=== PATIENT | male | born 1940 | race Caucasian/White ===

== ENCOUNTER → 2019-06-05 | Outpatient (CLI) | payer MEDICARE ==
[~2019-06-05] MED LIST: ALUMAG30SU PO; ASPI81CH PO; BISA10S PR; CHOLESTEROL MED; CIPR500 PO; CYAN1000 PO; ENOX80I; FOLI1 PO; HYDACE5 PO; MULVITMIND PO; NICO21TP TOP; Senna Plus Tab1 EACH PO
== END | disposition home or self-care (01) ==
LOC: PLD 14:40 → LAB SHORT 14:40
DX: C02.3 Malignant neoplasm of anterior two-thirds of tongue, part unspecified (principal)
CPT/HCPCS: 88305; 88341; 88342

== ENCOUNTER 2024-02-12 14:35 | Emergency (ER) | payer MEDICARE ==
[~2024-02-12] VITALS: Ht 177.8 cm; Wt 68.0 kg
[2024-02-12 15:11] LABS: BASOPHILS ABSOLUTE AUTO 0.02 K/mm3 (0.00-0.23); BASOPHILS PERCENT AUTO 0 % (0-2); EOSINOPHILS ABSOLUTE AUTO 0.06 K/mm3 (0.00-0.68); EOSINOPHILS PERCENT AUTO 1 % (0-6); Hemoglobin 6.9 g/dL (13.5-17.5); IMMATURE GRAN ABSOLUTE AUTO 0.08 K/mm3 (0.00-0.10); IMMATURE GRAN PERCENT AUTO 1 % (0-1); LYMPHOCYTES ABSOLUTE AUTO 0.49 K/mm3 (0.84-5.20); LYMPHOCYTES PERCENT AUTO 9 % (21-46); MONOCYTES ABSOLUTE AUTO 0.24 K/mm3 (0.16-1.47); MONOCYTES PERCENT AUTO 4 % (4-13); Mean Corpuscular HGB 28.8 pg (26.0-34.0); Mean Corpuscular HGB Conc 31.4 g/dL (31.5-36.5); Mean Corpuscular Volume 92 fL (80-100); Mean Platelet Volume 11.1 fL (9.1-12.4); NEUTROPHILS ABSOLUTE AUTO 4.71 K/mm3 (1.96-9.15); NEUTROPHILS PERCENT AUTO 84 % (41-73); Platelet Count 199 K/mm3 (150-400); RDW Standard Deviation 50.2 fL (35.1-46.3)
[2024-02-12 15:17] LABS: Albumin, Blood 2.5 g/dL (3.4-5.0); Albumin/Globulin Ratio 0.7 (0.8-1.8); Bilirubin, Total 1.3 mg/dL (0.1-1.0); Bun/Creatinine Ratio 12.7 (12.0-20.0); Calcium, Blood 7.9 mg/dL (8.5-10.1); Creatinine, Blood 1.1 mg/dL (0.60-1.20); Globulin, Blood 3.4 g/dL (2.2-4.0); Potassium, Blood 3.6 mmol/L (3.5-5.5); Total Protein, Blood 5.9 g/dL (6.4-8.2)
[2024-02-12 15:33] LABS: IMMATURE RETIC FRACTION 19.4 % (2.3-16.0); RETIC HGB EQUIVALENT 30.2 pg (28.20-36.60); RETICULOCYTE ABSOLUTE 0.0817 M/mm3 (0.0200-0.1100); RETICULOCYTE COUNT PERCENT 3.42 % (0.50-2.50)
[2024-02-12 16:00] LABS: Percent Saturation 12.1 % (20.0-50.0)
[2024-02-12] MEDS ORDERED: Sod Ferric Gluc Complx/Sucrose 125 MG in NS 100 ML IV ONE (17:00)
[2024-02-12 17:15] VITALS: BP 114/61
--- NOTE | 2024-02-12 17:29 | NUR ---
Pt into ER for leg pain. pt recieved ultrsound of legs. Pt very anemic. Pt refusing care wants to go home does not want treatment. Remote history of cancer. pt denies falls states he still is eating but mostly bedbound and sleeps. Very thin and frial. [facility] He sees a [facility] specialist [facility] [place]. He lives with his niece. Spoke with the niece, She answered questions as best she could. States she helps him but he limits her on what he will tolerate. 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 Of note the niece seems to have some disabilities. She blinks frequently and seems to struggle with interactions. I do get a any signs of abuses. 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 Reviewed case with phsycian, will update hospice social worker. suggest possible contact to [facility] for support. Will call pt clinic ans ask his pain specialist to review ER visit and encourage hospice evaluation and intake. I wa blunt with pt about his potential for suffering and loss of dignity. Will attempt a plan to help thei family. Pt high risk for readmission.
== END 2024-02-12 17:30 | disposition home or self-care (01) ==
LOC: ER 14:35
PROVIDERS: Emergency Medicine; Student in an Organized Health Care Education/Training Program
DX: R55 Syncope and collapse (principal); D64.9 Anemia, unspecified; E61.1 Iron deficiency; M79.604 Pain in right leg; I10 Essential (primary) hypertension; E11.9 Type 2 diabetes mellitus without complications; Z79.82 Long term (current) use of aspirin; Z79.899 Other long term (current) drug therapy; R53.83 Other fatigue
CPT/HCPCS: 71045; 80053; 83540; 83550; 83735; 83880; 84443; 84484; 85025; 85045; 85379; 86850; 86900; 86901; 93005; 93010; 93971; 99285-25; J2916

== ENCOUNTER → 2024-02-12 | Outpatient (CLI) | payer MEDICARE ==
[2024-02-12 14:18] LABS: BASOPHILS ABSOLUTE AUTO 0.03 K/mm3 (0.00-0.23); BASOPHILS PERCENT AUTO 0 % (0-2); EOSINOPHILS ABSOLUTE AUTO 0.14 K/mm3 (0.00-0.68); EOSINOPHILS PERCENT AUTO 2 % (0-6); Hematocrit 25.5 % (37.0-53.0); Hemoglobin 7.9 g/dL (13.5-17.5); IMMATURE GRAN ABSOLUTE AUTO 0.06 K/mm3 (0.00-0.10); IMMATURE GRAN PERCENT AUTO 1 % (0-1); LYMPHOCYTES PERCENT AUTO 19 % (21-46); MONOCYTES ABSOLUTE AUTO 0.53 K/mm3 (0.16-1.47); MONOCYTES PERCENT AUTO 7 % (4-13); Mean Corpuscular HGB 28.6 pg (26.0-34.0); Mean Corpuscular Volume 92 fL (80-100); Mean Platelet Volume 10.5 fL (9.1-12.4); NEUTROPHILS ABSOLUTE AUTO 5.54 K/mm3 (1.96-9.15); NEUTROPHILS PERCENT AUTO 71 % (41-73); Platelet Count 285 K/mm3 (150-400); RDW Coefficient Variation 15.1 % (11.7-14.2); RDW Standard Deviation 50.4 fL (35.1-46.3); Red Blood Cell Count 2.76 M/mm3 (4.30-5.90)
[2024-02-12 14:38] LABS: Albumin, Blood 2.5 g/dL (3.4-5.0); Albumin/Globulin Ratio 0.6 (0.8-1.8); Bilirubin, Total 1.5 mg/dL (0.1-1.0); Calcium, Blood 8.6 mg/dL (8.5-10.1); Creatinine, Blood 1.44 mg/dL (0.60-1.20); Globulin, Blood 4.1 g/dL (2.2-4.0); Magnesium, Blood 1.9 mg/dL (1.6-2.4); Potassium, Blood 3.5 mmol/L (3.5-5.5); Thyroid Stimulating Hormone 2.593 uIU/mL (0.360-4.800); Total Protein, Blood 6.6 g/dL (6.4-8.2)
== END | disposition home or self-care (01) ==
LOC: LAB SHORT 14:14 → LAB 14:14
PROVIDERS: Chiropractor
DX: R55 Syncope and collapse (principal); R53.83 Other fatigue
CPT/HCPCS: 80053; 83735; 83880; 84443; 84484; 85025; 85379

== ENCOUNTER 2024-12-04 10:47 | Emergency (ER) | payer MEDICARE ==
[~2024-12-04] VITALS: Ht 175.3 cm; Wt 56.7 kg
[2024-12-04 17:00] VITALS: BP 152/91
== END 2024-12-04 19:32 | disposition home or self-care (01) ==
LOC: ER 10:47
DX: J44.1 Chronic obstructive pulmonary disease with (acute) exacerbation (principal); I10 Essential (primary) hypertension; E11.9 Type 2 diabetes mellitus without complications; F17.200 Nicotine dependence, unspecified, uncomplicated; Z79.82 Long term (current) use of aspirin; Z79.899 Other long term (current) drug therapy

== ENCOUNTER 2025-01-14 14:53 | Inpatient (IN) | payer MEDICARE ==
[~2025-01-14] VITALS: Ht 172.7 cm; Wt 58.1 kg
[~2025-01-14 14:53] MED LIST changes: +AZIT250 PO; +PRED20 PO
[2025-01-14] MEDS ORDERED: HYDROCODONE-AC1 EA19 PO (15:09)
[2025-01-14] MEDS ORDERED: ATORVASTATIN CA20 MG PO (15:10)
[2025-01-14] MEDS ORDERED: AMLODIPINE BESYL5 MG PO (15:10)
[2025-01-14 15:14] LABS: BASOPHILS ABSOLUTE AUTO 0.02 K/mm3 (0.00-0.23); BASOPHILS PERCENT AUTO 0 % (0-2); EOSINOPHILS ABSOLUTE AUTO 0.03 K/mm3 (0.00-0.68); EOSINOPHILS PERCENT AUTO 0 % (0-6); Hematocrit 26.8 % (37.0-53.0); Hemoglobin 8.2 g/dL (13.5-17.5); IMMATURE GRAN ABSOLUTE AUTO 0.09 K/mm3 (0.00-0.10); IMMATURE GRAN PERCENT AUTO 1 % (0-1); LYMPHOCYTES PERCENT AUTO 32 % (21-46); MONOCYTES ABSOLUTE AUTO 0.24 K/mm3 (0.16-1.47); MONOCYTES PERCENT AUTO 4 % (4-13); Mean Corpuscular HGB 30.4 pg (26.0-34.0); Mean Corpuscular HGB Conc 30.6 g/dL (31.5-36.5); Mean Corpuscular Volume 99 fL (80-100); Mean Platelet Volume 11.1 fL (9.1-12.4); NEUTROPHILS ABSOLUTE AUTO 4.21 K/mm3 (1.96-9.15); NEUTROPHILS PERCENT AUTO 62 % (41-73); Platelet Count 162 K/mm3 (150-400); RDW Coefficient Variation 14.6 % (11.7-14.2); White Blood Cell Count 6.79 K/mm3 (4.00-11.30)
[2025-01-14 15:38] LABS: Albumin, Blood 2.3 g/dL (3.4-5.0); Albumin/Globulin Ratio 0.7 (0.8-1.8); Bilirubin, Total 1.3 mg/dL (0.1-1.0); Bun/Creatinine Ratio 9.3 (12.0-20.0); Calcium, Blood 7.8 mg/dL (8.5-10.1); Creatinine, Blood 1.29 mg/dL (0.60-1.20); Globulin, Blood 3.2 g/dL (2.2-4.0); Potassium, Blood 3.2 mmol/L (3.5-5.5); Total Protein, Blood 5.5 g/dL (6.4-8.2)
[2025-01-14] MEDS ORDERED: Lactated Ringer's 1,000 ML IV SCH (17:05)
[2025-01-14] MEDS ORDERED: FentaNYL Citrate 50 MCG/ML 2 ML Injection IV PRN (17:45)
[2025-01-14] MEDS ORDERED: Ampicillin Sod/Sulbactam Sod 1.5 GM in NS 100 ML IV SCH (18:00)
[2025-01-14 18:09] VITALS: BP 116/58
[2025-01-14] MEDS ORDERED: Potassium Chloride 40 MEQ in NS 250 ML IV ONE (18:30)
[2025-01-14 19:34] VITALS: BP 124/64
[2025-01-14] MEDS ORDERED: Heparin Sodium,Porcine 5,000 UNIT/0.5 ML SDV SC SCH (21:00)
[2025-01-14 23:30] VITALS: BP 117/59
[2025-01-15 04:06] LABS: BASOPHILS ABSOLUTE AUTO 0.01 K/mm3 (0.00-0.23); BASOPHILS PERCENT AUTO 0 % (0-2); EOSINOPHILS PERCENT AUTO 0 % (0-6); Hematocrit 24.9 % (37.0-53.0); Hemoglobin 7.5 g/dL (13.5-17.5); IMMATURE GRAN ABSOLUTE AUTO 0.04 K/mm3 (0.00-0.10); IMMATURE GRAN PERCENT AUTO 1 % (0-1); LYMPHOCYTES ABSOLUTE AUTO 0.72 K/mm3 (0.84-5.20); LYMPHOCYTES PERCENT AUTO 14 % (21-46); MONOCYTES ABSOLUTE AUTO 0.31 K/mm3 (0.16-1.47); MONOCYTES PERCENT AUTO 6 % (4-13); Mean Corpuscular HGB 30.4 pg (26.0-34.0); Mean Corpuscular HGB Conc 30.1 g/dL (31.5-36.5); Mean Corpuscular Volume 101 fL (80-100); Mean Platelet Volume 11.4 fL (9.1-12.4); NEUTROPHILS ABSOLUTE AUTO 4.26 K/mm3 (1.96-9.15); NEUTROPHILS PERCENT AUTO 80 % (41-73); Platelet Count 112 K/mm3 (150-400); RDW Coefficient Variation 14.6 % (11.7-14.2); Red Blood Cell Count 2.47 M/mm3 (4.30-5.90); White Blood Cell Count 5.34 K/mm3 (4.00-11.30)
[2025-01-15 04:07] VITALS: BP 137/68
--- NOTE | 2025-01-15 04:19 | NUR ---
SHIFT SUMMARY PT A NEW ADMIT ARRIVING PRIOR TO SHIFT CHANGE. THIS RN ASSUMED CARE OF PATIENT AT 1900. PT LETHARGIC AND ORIENTED TO SELF ONLY. MUMBLED/GARBLED SPEECH THAT IS UNINTELLIGIBLE SPEECH. MOANING AT TIMES. PT RESPONDS TO VERBAL STIMULI. TRACKING MOVEMENTS OF THIS RN WITH EYES. FOLLOWING SIMPLE COMMANDS AND ANSWERS SOME YES/NO QUESTIONS. EQUAL STRENGTH NOTED. SR ON MONITOR. BP STABLE T/O SHIFT. ON RA WITH SPO2 >92%. AFEBRILE. PT WITH STAGE 1 PRESSURE INJURIES ON MID BACK/SPINE AND COCCYX. NOTIFIED MD CASE. DRESSED PER PROTOCOL WOUND CARE ORDERS. REPOSITIONING Q2HRS WITH PILLOWS. NOTFIED BRUISING, SCABS, AND SCALING/FRAGILE SKIN T/O. HANNON CATHETER PATENT AND DRAINING TO GRAVITY. DURING ORAL CARE THIS AM, PT NOTED WITH BLEEDING NEAR TONGUE; DENTAL HYGENIST ORDER PLACED. PT REMAINS NPO. CARE MANAGEMENT ORDER PLACED PER FAMILY/NIECES FOR ASSISTANCE WITH CAREGIVING SUPPORT FOR PATIENT WHEN TIME FOR DISCHARGE. BED IN LOWEST POSITION AND CALL LIGHT WITHIN REACH. THIS RN [facility].
[2025-01-15 04:49] LABS: Albumin, Blood 2.1 g/dL (3.4-5.0); Albumin/Globulin Ratio 0.7 (0.8-1.8); Bilirubin, Total 0.9 mg/dL (0.1-1.0); Bun/Creatinine Ratio 10.4 (12.0-20.0); Calcium, Blood 7.2 mg/dL (8.5-10.1); Creatinine, Blood 1.34 mg/dL (0.60-1.20); Potassium, Blood 3.5 mmol/L (3.5-5.5); Total Protein, Blood 5.1 g/dL (6.4-8.2)
[2025-01-15] MEDS ORDERED: Lactated Ringer's 1,000 ML IV SCH (06:50)
[2025-01-15 08:08] VITALS: BP 134/60
[2025-01-15] MEDS ORDERED: Morphine Sulfate 4 MG/1 ML Injection IV PRN (08:10)
[2025-01-15] MEDS ORDERED: Morphine Sulfate 4 MG/1 ML Injection IV SCH (12:00)
--- NOTE | 2025-01-15 13:16 | NUR ---
Spiritual care visit conducted. Patient is lying inbed in the dark. He is alert but does not participate fully in the conversation. He states that he maik with his medical issues by sleeping, that his people in his [place] are supportive only sometimes. He requests a drink of water (which I later pass on to his attentive RN Di). He is open to a prayer being said for him, which I gladly supply. I will continue to remain availalbe to patient and family.
--- NOTE | 2025-01-15 15:33 | NUR ---
PALLIATIVE CARE VISIT: REVIEWED MEDICAL RECORD, POL FOUND ON FILE-DNR. NO AD. SPOKE TO RNBERTA PRIOR TO VISIT. MET WITH PT AND NIECE IN ROOM. PT IS NON RESPONSIVE, APPEARS FRAIL, CACHECTIC, MANY BRUISES TO ARMS. IS WARM TO TOUCH. PT MOANING OCCASIONALLY BUT HAS NO FACIAL GRIMACE AND APPEARS RELAXED. PER NIECE GALLO WHO IS PRESENT, PT OFTEN MOANS AT HOME BUT ALWAYS STATES HE IS NOT IN PAIN. HE DOES TAKE NORCO FOR PAIN. HE HAS ONLY BEEN EATING BITES OF FOOD AT HOME AND HAS PROBABLY LOST 20 LBS IN THE LAST MONTH AND ABOUT 30-40 LBS IN THE LAST 6 MONTHS. SHE STATES HE HAS NO APPETITE. THE SKIN ON HIS LEGS IS JUST HANGING. PER GALLO PT HAS A SON BUT IS ESTRANGED. 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 GALLO STATES HE HAS REFUSED TREATMENT FOR HIS CANCER BUT IT HAS BEEN SLOW GROWING. HE HAS NOT HAD FOLLOW-UP APPOINTMENTS WITH A PROVIDER TO MONITOR ITS PROGRESSION. SHE STATES "HE IS RECLUSIVE, HE WOULD NOT WANT TO BE HERE, HE WOULD JUST WANT TO BE COMFORTABLE". THIS LED INTO CONVERSATION ABOUT HOSPICE. GALLO IS WANTING TO TAKE PT HOME ON HOSPICE. SHE IS WILLING TO TAKE CARE OF HIM BUT NEEDS TO MAKE ROOM IN HER HOME FOR HIM TO COME STAY. HE NORMALLY LIVES IN HIS OWN HOME ON THE SAME PROPERTY. DISCUSSED COMFORT MEASURES. PER GALLO SHE WANTS TO DISCUSS OPTION WITH PROVIDER AND PT PRIOR TO MAKING DECISION. ANSWERED HER QUESTIONS AND ADDRESSED CONCERNS ABOUT HOSPICE. UPDATED PRIMARY RN, BERTA AND MD WITH ABOVE CONVERSATION.
[2025-01-15 17:22] VITALS: BP 142/73
--- NOTE | 2025-01-15 18:14 | NUR ---
End of Shift Pt sleeping majority of shift, able to be woken w/ verbal stimuli & touch. Pt [place]. Speech garbled, difficult to understand most of the time. Pt moaning occassionally but does not grimace or show signs of discomfort. Pt denying pain upon every pain assessment. Pt daughter at bedside majority of day. Pt VSS. Spo2 > 92% on RA. Pt made medical no telemetry status by . Monitor showing SR, HR 70s prior to telemetry DC. Pt daughter planning to take pt home on hospice.
[2025-01-15 19:30] VITALS: BP 150/79
--- NOTE | 2025-01-15 22:45 | NUR ---
ASSUMED CARE OF PT.AGREE WITH PRIOR FOOD BEVERAGE SUPERVISOR.PT HAS RESTED WITH DENIAL OF PAIN,DRINKING H2O PER STAFF ASSIST WITH SYRINGE.PARVEZ PATENT.
--- NOTE | 2025-01-15 22:45 | NUR ---
TRANSFER NOTE/PATIENT UPDATE THIS RN ASSUMED CARE OF PATIENT AT 1900. PT LETHARGIC AND ORIENTED X2-3. CONTINUED GARBLED/MUMBLED SPEECH AT TIMES. PT MADE MEDICAL WITH NO TELE. HRR REGULAR IN THE 70'S. ON RA WITH SPO2 >92%. BP STABLE. PT DENIED PAIN FOR THIS RN. DRESSINGS TO MID BACK/SPINE AND COCCYX C/D/I. CATH CARE AND ORAL CARE DONE. ATTENDS CHANGED. REPOSITIONING DONE Q2HRS. LR INFUSING PER EMAR. HANNON CATHETER PATENT AND DRAINING TO GRAVITY. THIS RN GAVE REPORT TO ALY PAGAN ON SURGICAL FLOOR. PT TRANSFERRED TO RM 215.
[2025-01-15 22:49] VITALS: BP 145/74
[2025-01-16 04:50] VITALS: BP 150/80
[2025-01-16 04:57] LABS: BASOPHILS ABSOLUTE AUTO 0.02 K/mm3 (0.00-0.23); BASOPHILS PERCENT AUTO 0 % (0-2); EOSINOPHILS ABSOLUTE AUTO 0.01 K/mm3 (0.00-0.68); EOSINOPHILS PERCENT AUTO 0 % (0-6); Hematocrit 24.5 % (37.0-53.0); Hemoglobin 7.6 g/dL (13.5-17.5); IMMATURE GRAN ABSOLUTE AUTO 0.06 K/mm3 (0.00-0.10); IMMATURE GRAN PERCENT AUTO 1 % (0-1); LYMPHOCYTES ABSOLUTE AUTO 0.71 K/mm3 (0.84-5.20); LYMPHOCYTES PERCENT AUTO 9 % (21-46); MONOCYTES ABSOLUTE AUTO 0.33 K/mm3 (0.16-1.47); MONOCYTES PERCENT AUTO 4 % (4-13); Mean Corpuscular HGB 29.7 pg (26.0-34.0); Mean Platelet Volume 11.1 fL (9.1-12.4); NEUTROPHILS ABSOLUTE AUTO 6.49 K/mm3 (1.96-9.15); NEUTROPHILS PERCENT AUTO 85 % (41-73); Platelet Count 114 K/mm3 (150-400); RDW Coefficient Variation 14.8 % (11.7-14.2); RDW Standard Deviation 51.4 fL (35.1-46.3); Red Blood Cell Count 2.56 M/mm3 (4.30-5.90); White Blood Cell Count 7.62 K/mm3 (4.00-11.30)
[2025-01-16 04:59] LABS: Mean Corpuscular Volume 96 fL (80-100)
[2025-01-16 06:07] LABS: Albumin, Blood 2.2 g/dL (3.4-5.0); Albumin/Globulin Ratio 0.8 (0.8-1.8); Bun/Creatinine Ratio 8.5 (12.0-20.0); Calcium, Blood 7.4 mg/dL (8.5-10.1); Creatinine, Blood 1.17 mg/dL (0.60-1.20); Globulin, Blood 2.9 g/dL (2.2-4.0); Potassium, Blood 3.4 mmol/L (3.5-5.5); Total Protein, Blood 5.1 g/dL (6.4-8.2)
[2025-01-16] MEDS ORDERED: Potassium Chl 20MEQ/Water100ML 100 ML IV STA (06:40)
[2025-01-16] MEDS ORDERED: AmLODIPine Besylate 5 MG Tab PO ONE (07:25)
[2025-01-16] MEDS ORDERED: HYDROcodone 5-APAP 325 TAB PO PRN (07:25)
[2025-01-16 07:30] VITALS: BP 142/69
[2025-01-16] MEDS ORDERED: Aspirin 81 MG Chew PO SCH (09:00)
[2025-01-16] MEDS ORDERED: Folic Acid 1 MG TAB PO SCH (09:00)
[2025-01-16 15:55] VITALS: BP 147/77
--- NOTE | 2025-01-16 18:31 | NUR ---
SUMMARY: NO ACUTE CHANGE TODAY, VSS, A/O. PT VERY FLAT. Q2 TURNS COMPLETED. PT HAS DENIED PAIN. PT ASSISTED WITH FOOD, PO INTAKE ENCOURAGED. ASPIRATION PRECAUTIONS. PLAN IS HOME ON HOSPICE TOMORROW, PT FAMILY IS AWARE AND IS AT BEDSIDE TONIGHT. PT ABLE TO MAKE NEEDS KNOWN
[2025-01-16 19:23] VITALS: BP 126/68
[2025-01-17 04:38] VITALS: BP 146/71
[2025-01-17 05:52] LABS: BASOPHILS ABSOLUTE AUTO 0.01 K/mm3 (0.00-0.23); BASOPHILS PERCENT AUTO 0 % (0-2); EOSINOPHILS ABSOLUTE AUTO 0.07 K/mm3 (0.00-0.68); EOSINOPHILS PERCENT AUTO 1 % (0-6); Hematocrit 22.1 % (37.0-53.0); Hemoglobin 6.8 g/dL (13.5-17.5); IMMATURE GRAN ABSOLUTE AUTO 0.02 K/mm3 (0.00-0.10); IMMATURE GRAN PERCENT AUTO 0 % (0-1); LYMPHOCYTES ABSOLUTE AUTO 0.95 K/mm3 (0.84-5.20); LYMPHOCYTES PERCENT AUTO 18 % (21-46); MONOCYTES ABSOLUTE AUTO 0.25 K/mm3 (0.16-1.47); MONOCYTES PERCENT AUTO 5 % (4-13); Mean Corpuscular HGB 29.4 pg (26.0-34.0); Mean Corpuscular HGB Conc 30.8 g/dL (31.5-36.5); Mean Corpuscular Volume 96 fL (80-100); Mean Platelet Volume 11.2 fL (9.1-12.4); NEUTROPHILS ABSOLUTE AUTO 4.05 K/mm3 (1.96-9.15); NEUTROPHILS PERCENT AUTO 76 % (41-73); Platelet Count 108 K/mm3 (150-400); RDW Coefficient Variation 14.7 % (11.7-14.2); RDW Standard Deviation 51.5 fL (35.1-46.3); Red Blood Cell Count 2.31 M/mm3 (4.30-5.90); White Blood Cell Count 5.35 K/mm3 (4.00-11.30)
[2025-01-17 06:21] LABS: Albumin/Globulin Ratio 0.7 (0.8-1.8); Bilirubin, Total 0.8 mg/dL (0.1-1.0); Bun/Creatinine Ratio 8.5 (12.0-20.0); Calcium, Blood 7.2 mg/dL (8.5-10.1); Creatinine, Blood 1.18 mg/dL (0.60-1.20); Globulin, Blood 2.8 g/dL (2.2-4.0); Potassium, Blood 2.9 mmol/L (3.5-5.5); Total Protein, Blood 4.8 g/dL (6.4-8.2)
--- NOTE | 2025-01-17 06:22 | NUR ---
SHIFT SUMMARY NO ACUTE CHANGES THIS SHIFT. AOX3, FORGETFUL. [place]. GARBLED SPEECH. ABLE TO FOLLOW SIMPLE DIRECTIONS & ANSWER YES/NO QUESTIONS APPROPRIATE. VSS. DENIES PAIN, N/V OR DYSPNEA. PLAN TO DC HOME W/HOSPICE TODAY. CALL LIGHT IN REACH & PT ABLE TO MAKE NEEDS KNOWN.
[2025-01-17 07:25] VITALS: BP 149/73
[2025-01-17] MEDS ORDERED: Potassium Chloride 10 Meq Tablet SA PO ONE (08:00)
[2025-01-17] MEDS ORDERED: AmLODIPine Besylate 5 MG Tab PO SCH (09:00)
--- NOTE | 2025-01-17 09:41 | NUR ---
RIGHT FOREARM IV REMOVED BY THIS HOTEL MAID AT 0940AM FOR PT DISCHARGE. IV DC'D INTACT.
--- NOTE | 2025-01-17 10:33 | NUR ---
DC INSTRUCT REVIEWED. HANDWRITTEN RX NORCO GIVEN. STATED UNDERSTANDING. AWAITING TRANSPORT.
--- NOTE | 2025-01-17 11:11 | NUR ---
pt transport here for pt.
== END 2025-01-17 11:18 | disposition hospice, home (50) | DRG 70 ==
LOC: ER 14:53 → PCU 14:54 → SURS 01-15 22:10
PROVIDERS: Emergency Medicine; Student in an Organized Health Care Education/Training Program; ADMIT Hospitalist
DX: G93.40 Encephalopathy, unspecified (principal); J69.0 Pneumonitis due to inhalation of food and vomit; S22.058A Other fracture of T5-T6 vertebra, initial encounter for closed fracture; Z66 Do not resuscitate; E11.9 Type 2 diabetes mellitus without complications; I10 Essential (primary) hypertension; F17.210 Nicotine dependence, cigarettes, uncomplicated; F10.20 Alcohol dependence, uncomplicated; E78.5 Hyperlipidemia, unspecified; E87.6 Hypokalemia; J44.9 Chronic obstructive pulmonary disease, unspecified; M54.9 Dorsalgia, unspecified; D64.9 Anemia, unspecified; Z85.818 Personal history of malignant neoplasm of other sites of lip, oral cavity, and pharynx; Z86.73 Personal history of transient ischemic attack (TIA), and cerebral infarction without residual deficits; Z79.899 Other long term (current) drug therapy; Z79.82 Long term (current) use of aspirin; Z79.2 Long term (current) use of antibiotics; Z79.52 Long term (current) use of systemic steroids; X58.XXXA Exposure to other specified factors, initial encounter
CPT/HCPCS: 36415; 70450; 71045; 80053; 83605; 83735; 85025; 92526; 92610; 93005; 93010; 94762; 96361; 96365; 96366; 96372; 96374; 96375; 96376; 99285-25; A9270; G0378; J0295; J1644; J3480; J7050; J7120